=== PATIENT | male | born 1955 | race Caucasian/White ===

== ENCOUNTER 2018-06-01 21:43 | Emergency (ER) | payer MEDICARE, OTHER ==
[~2018-06-01] VITALS: Ht 177.8 cm; Wt 64.1 kg
[~2018-06-01 21:43] MED LIST: ALBU8.5H8 IH; CEPH-571 PO; CLON-527 PO; DOCU250C4 PO; FERR325C PO; GABA300C PO; HYDR-4353 PO; METH750T3 PO; OMEP20CA10 PO; TERA1CAP4 PO; ZOLP10TA PO
[2018-06-01 21:57] VITALS: BP 106/70
== END 2018-06-01 23:13 | disposition home or self-care (01) ==
LOC: ER 21:44
DX: R60.0 Localized edema (principal); I99.8 Other disorder of circulatory system; K21.9 Gastro-esophageal reflux disease without esophagitis; G89.29 Other chronic pain; F31.9 Bipolar disorder, unspecified; J44.9 Chronic obstructive pulmonary disease, unspecified; Z88.8 Allergy status to other drugs, medicaments and biological substances; Z88.5 Allergy status to narcotic agent; Z79.899 Other long term (current) drug therapy
CPT/HCPCS: 99281

== ENCOUNTER 2021-08-03 14:33 | Emergency (ER) | payer BC, MEDICAID ==
[~2021-08-03] VITALS: Ht 175.3 cm; Wt 56.8 kg
[~2021-08-03 14:33] MED LIST changes: -ALBU8.5H8 IH; -CEPH-571 PO; -CLON-527 PO; +DICY10CA88 PO; -DOCU250C4 PO; +FERR-106 PO; -FERR325C PO; +GABA-534 PO; -GABA300C PO; +HYDR-3964 PO; -HYDR-4353 PO; +METH-797 PO; -METH750T3 PO; +NICO-731 TOP; -OMEP20CA10 PO; +OMEP20CA16 PO; -ZOLP10TA PO
[2021-08-03 14:43] VITALS: BP 105/50
--- NOTE | 2021-08-03 16:36 | NUR ---
Per other patients in the lobby, Patient had stated that he was leaving and we could just call him with the results. However, patient had not been seen by a provider prior to leaving.
[2021-08-06] MEDS ORDERED: HYDR-3965 PO (09:43)
[2021-08-06] MEDS ORDERED: CEPH250C PO (12:48)
[2021-08-06] MEDS ORDERED: APIX5TAB3 PO (12:48)
[2021-08-06] MEDS ORDERED: TERA1CAP4 PO (12:52)
== END 2021-08-03 16:39 | disposition left against medical advice (07) ==
LOC: ER 14:35
DX: M25.522 Pain in left elbow (principal); Z53.21 Procedure and treatment not carried out due to patient leaving prior to being seen by health care provider
CPT/HCPCS: 73080